=== PATIENT | male | born 1970 ===

== ENCOUNTER → 2021-04-04 | Outpatient (CLI) | payer BC ==
--- NOTE | 2021-04-05 16:37 | SLEEP ---
DATE OF STUDY: 04/04/2021 HOME POLYSOMNOGRAM REPORT OBJECTIVE: The patient is a 51-year-old male with possible sleep apnea. Fisher sleep score 15, height 72 inches, weight 210 pounds. Body mass index 28.5. INTERPRETATION: There are a total of 462 events for an apnea-hypopnea index of 53.3 events per hour of sleep. Minimum oxygen saturation is 65%. No cardiac arrhythmias are observed. IMPRESSION: Abnormal home polysomnogram demonstrating severe obstructive sleep apnea and hypopnea. RECOMMENDATIONS: The patient should return for an in-lab sleep study given the severity of the apnea for the purposes of CPAP titration. Alternatively, the patient could be tried on auto titrating CPAP machine, but that is not advisable. The patient should also pursue weight loss and avoid sedatives and alcohol. Thank you for letting us help with the patient's care. VLAD/AMBREEN/ELIDIA DR: Kaylie TID: [id number] CC: ABHAY HALEY MD
== END ==
LOC: RT 08:58
PROVIDERS: ATTEND Family Medicine
DX: G47.33 Obstructive sleep apnea (adult) (pediatric) (principal)
CPT/HCPCS: G0399